=== PATIENT | male | born 1960 | race American Indian/Alaskan Native ===

== ENCOUNTER 2022-01-20 09:07 | Day surgery (SDC) | payer OTHER ==
[~2022-01-20 09:07] MED LIST: LACTATED RINGERS 1,000 ML ONE
[2022-01-20] MEDS ORDERED: ONDANSETRON 4 MG/2 ML INJ IV PRN (11:33)
[2022-01-20] MEDS ORDERED: HYDROmorphone 0.5 MG/0.5 ML INJ IV PRN ×2 (11:33)
[2022-01-20] MEDS ORDERED: fentaNYL 100 MCG/2 ML INJ IV NR (11:33)
--- NOTE | 2022-01-20 11:34 | Anesthesia Day of Surgery ---
Anesthesia Day of Surgery - Day of Surgery Patient Examined: Yes Patient H&P Reviewed: Yes Patient is NPO: Yes
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
[2022-01-20] MEDS ORDERED: BUPIVACAINE/PF (0.5%) 5 MG/1 ML 30 ML VIAL INFILTRATI ONE (11:37)
[2022-01-20] MEDS ORDERED: dexAMETHasone 4 MG/ML VIAL ONE (11:37)
[2022-01-20] MEDS ORDERED: LACTATED RINGERS 1,000 ML IV SCH (11:45)
[2022-01-20] MEDS ORDERED: MIDAZOLAM 2 MG/2 ML INJ IV NR (12:00)
[2022-01-20] MEDS ORDERED: ROCURONIUM 50 MG/5 ML INJ IV ONE (12:46)
[2022-01-20] MEDS ORDERED: HYDROmorphone 1 MG/1 ML INJ ONE (12:46)
[2022-01-20] MEDS ORDERED: propofoL 200 MG/20 ML VIAL IV ONE (12:46)
[2022-01-20] MEDS ORDERED: LIDOCAINE MPF (2%) 20 MG/1 ML VIAL 5 ML ONE (12:46)
[2022-01-20] MEDS ORDERED: ceFAZolin/Water 2 GM/20 ML 2 GM/20 ML SYRINGE IV ONE (12:52)
[2022-01-20] MEDS ORDERED: ceFAZolin/STERILE WATER 2 GM/20 ML SYRINGE IV SCH (13:00)
[2022-01-20] MEDS ORDERED: EPINEPHrine/PF 1 MG/1 ML INJ ONE (13:03)
[2022-01-20] MEDS ORDERED: ePHEDrine SULFATE 50 MG/1 ML INJ ONE (13:55)
[2022-01-20] MEDS ORDERED: SODIUM CHLORIDE 0.9% IRRIG SOLN 2000 ML IR ONE (14:40)
[2022-01-20] MEDS ORDERED: EPINEPHrine/PF 1 MG/1 ML INJ IV ONE (14:40)
[2022-01-20] MEDS ORDERED: NEOSTIGMINE 10MG/10 ML INJ MDV ONE (15:05)
[2022-01-20] MEDS ORDERED: GLYCOPYRROLATE 0.4 MG/2 ML INJ ONE (15:05)
[2022-01-20] MEDS ORDERED: ONDANSETRON 4 MG/2 ML INJ ONE (15:06)
[2022-01-20] MEDS ORDERED: LACTATED RINGERS 1,000 ML ONE (15:09)
--- NOTE | 2022-01-20 15:27 | Discharge Summary ---
Short Stay Discharge Plan Weight Bearing Status: Non-Weight Bearing Diet: regular Wound: change dressing (Leave dressing on for 48 hours and may remove to take shower.) Follow up with: DR LOUISE [Other] - 7 Days JUDSON ANDRADE II, MD [Staff Physician] - 14 Days
--- NOTE | 2022-01-20 16:51 | Post Anesthesia Evaluation ---
- Post Anesthesia Evaluation Patient Participated: Yes Airway Patent: Yes Stable Respiratory Function: Yes Nausea/Vomiting: No Temp > 96.8F: Yes Pain Manageable: Yes Adequeate Hydration: Yes Anesthesia Complications: No Block Receding Appropriately: Yes Patient on Ventilator: No
[2022-01-20 17:59] VITALS: BP 126/63
--- NOTE | 2022-01-21 04:35 | Operative Report ---
DATE OF SURGERY: 01/20/2022 PREOPERATIVE DIAGNOSIS: Right shoulder rotator cuff tear. POSTOPERATIVE DIAGNOSIS: Right shoulder rotator cuff tear. PROCEDURE PERFORMED: Right shoulder arthroscopic rotator cuff repair and subacromial decompression. SURGEON: Radhames Flores II, MD ATMOSPHERIC PHYSICIST: None. ANESTHESIA: General with interscalene block. COMPLICATIONS: None. DRAINS: None. SPECIMENS: None. TOURNIQUET TIME: Not applicable. PREOPERATIVE MEDICATIONS: Ancef 2 grams. Examination under anesthesia reveals full range of motion. No instability. OPERATIVE FINDINGS: Includes a full-thickness tear of the rotator cuff, estimated to be 1 cm in length. INDICATIONS: The patient is a 61-year-old male who has been having refractory pain in his right shoulder, who has failed conservative treatment. It was recommended the patient undergo surgical management. Risks, benefits and limitations of surgery were discussed with the patient including bleeding, infection, injury to nerves, blood vessel, need for operation. The patient appeared to understand the risks and consented to undergo surgery. TECHNIQUE: In the preoperative holding area, site was marked with surgical marking pen. Extremity was prepped and draped in sterile fashion in a beach chair position. Standard posterior portal was placed and diagnostic arthroscopy was performed. The articular cartilage appeared to be normal. There was some fraying in the posterior superior labrum, partial thickness tearing. The biceps tendon was normal. There was noted to be a tear of the rotator cuff. This was a full-thickness tear of the rotator cuff. Decision was made to perform a rotator cuff repair. Scope was placed into the subacromial space where a bursectomy and arthroscopic acromioplasty was performed removing 5 mm undersurface of the acromion. Rotator cuff tear was visualized and noted to be about 1 cm from anterior to posterior. The tuberosity was abraded using a shaver and then a 5.5 mm PEEK [employer] anchor from [employer] was inserted just off the articular margin. Two mattress sutures were placed through the rotator cuff and tied down arthroscopically. The medial row was left uncut and then a lateral row repair was performed using a 4.5 mm PEEK [employer] from [employer]. The repair was probed and noted to be stable. The scope was placed intraarticularly and was noted to be tied down to the articular margin. The arthroscope was then removed. Incisions were closed with 3-0 nylon. Sterile dressing was applied. The patient was awakened and taken to recovery room in stable condition. POSTOPERATIVE PLAN: The patient will be in a sling for 6 weeks, do physical therapy, work on range of motion exercises. We will see the patient back for a followup visit in 2 weeks postop. TID: [id number] RECEIPT: [id number] DEMETRIO/DAHLIA
== END 2022-01-20 17:05 | disposition home or self-care (01) ==
LOC: OR 09:07
PROVIDERS: ATTEND Orthopaedic Surgery Sports Medicine
DX: M75.121 Complete rotator cuff tear or rupture of right shoulder, not specified as traumatic (principal); G43.909 Migraine, unspecified, not intractable, without status migrainosus; Z72.89 Other problems related to lifestyle; Z98.890 Other specified postprocedural states
CPT/HCPCS: 29826; 29827; 64415; C1713; J0171; J0690; J1100; J1170; J1815; J2250; J2405; J2704; J2710; J3010; J3490; J7120